=== PATIENT | male | born 1990 | race Two or more races ===

== ENCOUNTER 2017-10-10 22:09 | Emergency (ER) | payer OTHER ==
[2017-10-11 02:29] VITALS: BP 124/73
--- NOTE | 2017-10-11 02:32 | ED ---
Lower Extremity - HPI Summary HPI Summary: Patient is a 27-year-old male who presents emergency department for a left knee injury that occurred today. Patient states he was playing basketball and twisted his left knee and felt a pop. Is an inmate at 5 point. Pt. is able to ambulate with pain. Walking and bending knee makes symptoms worse. Rest makes symptoms better. Pt. notes an old injury to lower tib/fib. Symptoms are mild in severity. - History of Current Complaint Chief Complaint: EDExtremityLower Stated Complaint: LT LEG INJURY Time Seen by Provider: 10/11/17 01:16 Hx Obtained From: Patient Pain Intensity: 6 - Allergies/Home Medications Allergies/Adverse Reactions: Allergies Allergy/AdvReac Type Severity Reaction Status Date / Time No Known Allergies Allergy Verified 10/10/17 22:23 Home Medications: Home Medications NK [No Home Medications Reported] 10/11/17 [History Confirmed 10/11/17] PMH/Surg Hx/FS Hx/Imm Hx Previously Healthy: Yes - Immunization History Immunizations Up to Date: Yes Infectious Disease History: No Infectious Disease History: Denies: Traveled Outside the [place] in Last 30 Days - Social History Alcohol Use: None Substance Use Type: Reports: None Smoking Status (MU): Light Every Day Tobacco Smoker Review of Systems Positive: Other - left knee pain Negative: Weakness, Paresthesia, Numbness All Other Systems Reviewed And Are Negative: Yes Physical Exam Triage Information Reviewed: Yes Vital Signs On Initial Exam: Initial Vitals Temp Pulse Resp BP Pulse Ox 97.9 F 74 16 119/79 98 10/10/17 22:20 10/10/17 22:20 10/10/17 22:20 10/10/17 22:20 10/10/17 22:20 Vital Signs Reviewed: Yes Appearance: Positive: Well-Appearing - Pt. lying in bed in NAD. Officers present. Head/Face: Positive: Normal Head/Face Inspection Eyes: Positive: Normal Neck: Positive: Supple Musculoskeletal: Positive: Other - No edema to left knee. No increased laxity. Pain on palpation to the posterior and lateral aspect. Full ROM with pain. Neurological: Positive: Normal, CN Intact II-III Psychiatric: Positive: Affect/Mood Appropriate Diagnostics - Vital Signs Vital Signs Temp Pulse Resp BP Pulse Ox 10/10/17 23:50 98.2 F 58 14 133/73 99 10/10/17 22:20 97.9 F 74 16 119/79 98 - Laboratory Lab Statement: Any lab studies that have been ordered have been reviewed, and results considered in the medical decision making process. Lower Extremity Course/Dx - Course Course Of Treatment: Pt. presenting for a minor left knee injury. Xray reviewed by myself and Dr. Castorena and shows an old tibia injury without new fracture or dislocation. Christopher wrap placed. Advised pt. to f.u with orthopedics for further evaluation if pain continues. To ice and elevate. Tylenol or Motrin for pain as directed. - Diagnoses Differential Diagnosis/HQI/PQRI: Positive: Contusion, Dislocation, Fracture ( Closed), Sprain, Strain Provider Diagnoses: Knee sprain Discharge - Sign-Out/Discharge Documenting (check all that apply): Discharge/Admit/Transfer - Discharge Plan Condition: Good Disposition: HOME Patient Education Materials: Knee Sprain (ED) Referrals: Debi NEGRON,Baldev Molina [Primary Care Provider] - Bartolo Gaviria MD [Medical Doctor] - Additional Instructions: Call Dr. Gaviria's office tomorrow to schedule a follow up appointment Wear acewrap for comfort Ice and elevate Tylenol or Motrin for pain as directed - Billing Disposition and Condition Condition: GOOD Disposition: Home
--- NOTE | 2017-10-11 06:21 | RAD ---
INDICATION: Left knee pain after a basketball injury COMPARISON: None TECHNIQUE: 5 view radiograph of the left knee. FINDINGS: There is irregularity of the proximal tibial metaphysis exhibiting bony callus formation and valgus angulation. This appears chronic. Otherwise the visualized bones are well-corticated and properly aligned. The joint spaces are properly maintained. There is no radiographic evidence of joint effusion. There is no acute fracture, dislocation or other focal bony abnormality. IMPRESSION: Normal knee radiograph as described above. If the patient's symptoms persist, follow-up imaging is recommended.
== END 2017-10-11 02:28 | disposition home or self-care (01) ==
LOC: EDBD → ED 22:09
DX: S83.92XA Sprain of unspecified site of left knee, initial encounter (principal); X50.1XXA Overexertion from prolonged static or awkward postures, initial encounter; Y93.67 Activity, basketball; Y92.9 Unspecified place or not applicable; Z72.0 Tobacco use
CPT/HCPCS: 99282